=== PATIENT | female | born 2000 | race African-American/Black ===

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

== ENCOUNTER 2019-08-14 21:31 | Emergency (ER) | payer OTHER ==
[2019-08-14] MEDS ORDERED: ACETAMINOPHEN 500 MG TAB ONE (22:31)
[2019-08-15] MEDS ORDERED: PEN G BENZ LA 1.2MU/2ML SYRINGE IM ONE (00:31)
[2019-08-15] MEDS ORDERED: IBUPROFEN 200 MG TAB PO ONE (00:42)
[2019-08-15] MEDS ORDERED: IBUPROFEN 400 MG TAB ONE (00:42)
[2019-08-15 01:06] LABS: Urine Blood NEGATIVE (NEG); Urine Glucose NEGATIVE (NEG); Urine Protein NEGATIVE (NEG); Urine Specific Gravity 1.025 (1.005-1.030)
[2019-08-15 01:06] LABS: Urine Bacteria <20 /HPF (<20); Urine Culture Reflex Order REFLEXED; Urine RBC NONE SEEN /HPF (NONE SEEN)
[2019-08-15 01:59] VITALS: O2SAT 100
[2019-08-15 02:01] VITALS: BP 136/70; TEMP 101.8
--- NOTE | 2019-08-15 08:21 | RAD REPORT ---
EXAM DESCRIPTION: Jairon Single View08/14/2019 10:36 pm CLINICAL HISTORY: Fever COMPARISON: 2014 FINDINGS: The lungs appear clear of acute infiltrate. The heart is normal size IMPRESSION: No acute abnormalities displayed
--- NOTE | 2019-08-17 13:04 | EKG ---
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
--- NOTE | 2019-08-19 15:23 | ER ---
Nurse's Notes [facility] Name: Lidia Vivas Age: 18 yrs Sex: Female : 2000 Arrival Date: 08/14/2019 Time: 21:36 Bed 20 Private MD: Diagnosis: Fever, unspecified;Otitis media, unspecified, right ear Presentation: 08/13 21:49 Chief complaint: Patient states: "I've been having a fever and my tonsils are swollen lp1 and I have a headache"; patient states headache since 08/04/19; Fever that began yesterday, temp of 104 today; Last took Ibuprofen and tylenol at about 1400. Coronavirus screen: Patient denies a cough. Patient denies shortness of breath or difficulty breathing. Patient reports a measured and/or subjective temperature greater than 100.4F. Patient denies travel on a cruise ship or to a country the [facility] currently lists as an affected area. Patient denies contact with known and/or suspected case of COVID-19. Ebola Screen: No symptoms or risks identified at this time. Initial Sepsis Screen: Does the patient meet any 2 criteria? Temp <36.0*C (96.8*F)) or > 38.3*C (100.9*F). HR > 90 bpm. Does the patient have a suspected source of infection? Yes: Other: Unknown. Risk Assessment: Do you want to hurt yourself or someone else? Patient reports no desire to harm self or others. Note Patient states having a tooth fall out a couple days ago, "a really bad cavity". Onset of symptoms was August 04, 2019. 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 - Social history:: Smoking status: Patient denies any tobacco usage or history of. Screenin/28 00:00 Abuse screen: Denies threats or abuse. Nutritional screening: No deficits noted. vc Tuberculosis screening: No symptoms or risk factors identified. Fall Risk None identified. Assessment: 08/13 22:29 General: Appears uncomfortable, Behavior is anxious. Pain: Complains of pain in throat ll1 Quality of pain is described as aching, Pain began 2-3 days ago. Neuro: No deficits noted. Cardiovascular: No deficits noted. EENT: Throat is reddened has enlarged tonsils Reports difficulty swallowing nasal congestion pain when swallowing in both ears. 22:37 Reassessment: Spoke with patient's mother, Kamla; Updated on plan of care for patient; lp1 Mother states she will call patient. 23:26 Reassessment: No changes from previously documented assessment. Patient and/or family ll1 updated on plan of care and expected duration. Pain level reassessed. Patient is alert, oriented x 3, equal unlabored respirations, skin warm/dry/pink. 23:57 Reassessment: No changes from previously documented assessment. Patient and/or family ll1 updated on plan of care and expected duration. Pain level reassessed. Patient is alert, oriented x 3, equal unlabored respirations, skin warm/dry/pink. Gait steady to restroom for UA collection. 08/14 01:00 Reassessment: Patient appears in no apparent distress at this time. Patient and/or vc family updated on plan of care and expected duration. Pain level reassessed. Patient is alert, oriented x 3, equal unlabored respirations, skin warm/dry/pink. 01:33 Reassessment: Patient appears in no apparent distress at this time. Patient and/or vc family updated on plan of care and expected duration. Pain level reassessed. Patient is alert, oriented x 3, equal unlabored respirations, skin warm/dry/pink. Patient states feeling better. Patient states symptoms have improved. Vital Signs: 08/13 21:49 BP 119 / 73; Pulse 109; Resp 18; Temp 103.7(O); Pulse Ox 100% on R/A; Weight 95.71 kg lp1 (R); Height 5 ft. 7 in. (170.18 cm); Pain 9/10; 22:30 BP 146 / 83; Pulse 104; Resp 18; Pulse Ox 95% ; ll1 23:25 BP 138 / 74; Pulse 102; Resp 17; Temp 103.2; Pulse Ox 100% ; ll1 08/14 01:33 BP 136 / 70; Pulse 99; Resp 18; Temp 101.8; Pulse Ox 100% on R/A; vc 08/13 21:49 Body Mass Index 33.05 (95.71 kg, 170.18 cm) lp1 ED Course: 08/13 21:36 Patient arrived in ED. cf2 21:53 Lisandra Lowery F[facility]-C [facility]. snw 21:53 Gabriel Anderson MD is Attending Physician. snw 21:56 Triage completed. lp1 21:57 Jaja Linda, HAROON is Primary Nurse. ll1 21:57 Arm band placed on right wrist. lp1 22:36 Chest Single View XRAY In Process Unspecified. EDMS 08/14 01:25 Primary Nurse role handed off by Jaja Linda RN vc 01:25 Monserrat Lopez RN is Primary Nurse. vc 01:32 No provider procedures requiring assistance completed. Patient did not have IV access vc during this emergency room visit. Administered Medications: 08/13 22:25 Drug: Tylenol 1000 mg Route: PO; ll1 23:47 Follow up: Response: No adverse reaction; Temperature is decreased; RASS: Alert and ll1 Calm (0) 08/14 01:39 Follow up: Response: No adverse reaction; Temperature is decreased vc 00:32 Drug: Bicillin L-A 1.2 million units Route: IM; Site: Ventrogluteal RIGHT; vc 01:34 Follow up: Response: No adverse reaction vc 00:41 Drug: Motrin 600 mg Route: PO; vc 01:34 Follow up: Response: No adverse reaction vc 01:35 Not Given (Patient Refused): NS 0.9% (30 ml/kg) 30 ml/kg IV at bolus once; Sepsis vc Protocol Outcome: 00:39 Discharge ordered by . snw 01:32 Discharged to home vc 01:32 Condition: good 01:32 Discharge instructions given to patient, Instructed on discharge instructions, follow up and referral plans. Demonstrated understanding of instructions, follow-up care. 01:35 Patient left the ED. vc Signatures: Dispatcher [employer] EDAL Lisandra Lowery, [employer] PROCESS LEAD-[employer] [place] Molina RN RN lp1 Eli Monahan cf2 Monserrat Lopez RN RN vc Alexei, Jaja, RN RN ll1
--- NOTE | 2019-08-19 15:23 | EDPHYS ---
Physician Documentation [facility] [place] Name: Lidia Vivas Age: 18 yrs Sex: Female : 2000 Arrival Date: 08/14/2019 Time: 21:36 Bed 20 Private MD: ED Physician Gabriel Anderson HPI: 08/13 22:34 This 18 yrs old Black Female presents to ER via Ambulatory with complaints of Fever, snw Ear Pain, Sore Throat. 22:34 The patient reports fever, that was measured at 104 degrees Fahrenheit. Onset: The snw symptoms/episode began/occurred gradually, 10 day(s) ago, and became worse today, fever began today. Associated signs and symptoms: Pertinent positives: chills, earache, sore throat. Severity of symptoms: At their worst the symptoms were moderate in the emergency department the symptoms are unchanged. The patient has not experienced similar symptoms in the past. recent tooth extraction. 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 - Social history:: Smoking status: Patient denies any tobacco usage or history of. ROS: 22:33 Eyes: Negative for injury, pain, redness, and discharge. snw 22:33 Cardiovascular: Negative for chest pain, palpitations, and edema, Respiratory: Negative for shortness of breath, cough, wheezing, and pleuritic chest pain, Abdomen/GI: Negative for abdominal pain, nausea, vomiting, diarrhea, and constipation, Back: Negative for injury and pain, : Negative for injury, bleeding, discharge, and swelling, MS/Extremity: Negative for injury and deformity, Skin: Negative for injury, rash, and discoloration, Neuro: Negative for headache, weakness, numbness, tingling, and seizure, Psych: Negative for depression, anxiety, suicide ideation, homicidal ideation, and hallucinations. 22:33 Constitutional: Positive for body aches, fatigue, fever. 22:33 ENT: Positive for ear pain, sore throat. 22:33 Neck: Positive for swollen nodes, tenderness. Exam: 22:31 Head/Face: Normocephalic, atraumatic. Eyes: Pupils equal round and reactive to light, snw extra-ocular motions intact. Lids and lashes normal. Conjunctiva and sclera are non-icteric and not injected. Cornea within normal limits. Periorbital areas with no swelling, redness, or edema. 22:31 Chest/axilla: Normal chest wall appearance and motion. Nontender with no deformity. No lesions are appreciated. 22:31 Respiratory: Lungs have equal breath sounds bilaterally, clear to auscultation and percussion. No rales, rhonchi or wheezes noted. No increased work of breathing, no retractions or nasal flaring. Abdomen/GI: Soft, non-tender, with normal bowel sounds. No distension or tympany. No guarding or rebound. No evidence of tenderness throughout. Back: No spinal tenderness. No costovertebral tenderness. Full range of motion. Skin: Warm, dry with normal turgor. Normal color with no rashes, no lesions, and no evidence of cellulitis. MS/ Extremity: Pulses equal, no cyanosis. Neurovascular intact. Full, normal range of motion. Neuro: Awake and alert, GCS 15, oriented to person, place, time, and situation. Cranial nerves II-XII grossly intact. Motor strength 5/5 in all extremities. Sensory grossly intact. Cerebellar exam normal. Normal gait. 22:31 Constitutional: The patient appears alert, awake, febrile. 22:31 ENT: TM's: erythema, that is moderate, on the right, Examination of the other ear shows no obvious abnormality, Nose: is normal, Mouth: is normal, Posterior pharynx: erythema, that is mild, Voice: is normal. 22:31 Neck: Lymph nodes: lymphadenopathy is appreciated, anterior cervical nodes. 22:31 Cardiovascular: Rate: tachycardic, Rhythm: regular. 22:31 Psych: Behavior/mood is cooperative, inappropriate for age, Affect is animated. Vital Signs: 21:49 BP 119 / 73; Pulse 109; Resp 18; Temp 103.7(O); Pulse Ox 100% on R/A; Weight 95.71 kg lp1 (R); Height 5 ft. 7 in. (170.18 cm); Pain 9/10; 22:30 BP 146 / 83; Pulse 104; Resp 18; Pulse Ox 95% ; ll1 23:25 BP 138 / 74; Pulse 102; Resp 17; Temp 103.2; Pulse Ox 100% ; ll1 08/14 01:33 BP 136 / 70; Pulse 99; Resp 18; Temp 101.8; Pulse Ox 100% on R/A; vc 08/13 21:49 Body Mass Index 33.05 (95.71 kg, 170.18 cm) lp1 MDM: 08/13 22:12 Patient medically screened. snw 08/14 00:20 Data reviewed: vital signs, nurses notes. Data interpreted: Pulse oximetry: on room air snw is 100 %. Interpretation: normal. Counseling: I had a detailed discussion with the patient and/or guardian regarding: the historical points, exam findings, and any diagnostic results supporting the discharge/admit diagnosis, lab results, radiology results, the need for outpatient follow up, to return to the emergency department if symptoms worsen or persist or if there are any questions or concerns that arise at home. Refusal of service: The patient/guardian displays adequate decision making capability and despite a detailed discussion of alternatives, benefits, risks, and consequences refuses: pt refuses iv, ivf, will consent to Bicillin LA IM. EKG not suggestive of endocarditis, flu and strep negative, but right otitis media. . 00:40 Special discussion: Based on the history and exam findings, there is no indication for snw further emergent testing or inpatient evaluation. I discussed with the patient/guardian the need to see the primary care provider for further evaluation of the symptoms. 08/13 22:04 Order name: Basic Metabolic Panel [facility] 08/13 22:04 Order name: Blood Culture Adult (2) w 08/13 22:04 Order name: CBC with Diff w 08/13 22:04 Order name: Urine Microscopic Only snw 08/13 22:04 Order name: Flu; Complete Time: 22:50 snw 08/13 22:04 Order name: Strep; Complete Time: 22:50 snw 08/13 22:04 Order name: Chest Single View XRAY [facility] 08/13 22:04 Order name: Cardiac monitoring; Complete Time: 23:46 snw 08/13 22:04 Order name: EKG - Nurse/Tech; Complete Time: 23:46 snw 08/13 22:04 Order name: O2 Per Protocol; Complete Time: 22:28 snw 08/13 22:04 Order name: O2 Sat Monitoring; Complete Time: 22:28 snw 08/13 23:07 Order name: Throat Culture [facility] 08/14 00:08 Order name: Urine Dipstick--Ancillary (enter results) [facility] 08/14 00:08 Order name: Urine --Ancillary (enter results) [facility] 08/14 01:07 Order name: Urine Culture [facility] 08/13 22:04 Order name: Urine Dipstick-Ancillary (obtain specimen); Complete Time: 23:47 snw EC/27 22:50 Rate is 107 beats/min. Rhythm is regular. QRS [place] is Normal. [place] interval is normal. snw QRS interval is normal. QT interval is normal. No Q waves. T waves are Normal. Clinical impression: Sinus tachycardia. Administered Medications: 22:25 Drug: Tylenol 1000 mg Route: PO; ll1 23:47 Follow up: Response: No adverse reaction; Temperature is decreased; RASS: Alert and ll1 Calm (0) 08/14 01:39 Follow up: Response: No adverse reaction; Temperature is decreased vc 00:32 Drug: Bicillin L-A 1.2 million units Route: IM; Site: Ventrogluteal RIGHT; vc 01:34 Follow up: Response: No adverse reaction vc 00:41 Drug: Motrin 600 mg Route: PO; vc 01:34 Follow up: Response: No adverse reaction vc 01:35 Not Given (Patient Refused): NS 0.9% (30 ml/kg) 30 ml/kg IV at bolus once; Sepsis vc Protocol Disposition: 06:41 Co-signature as Attending Physician, Gabriel Anderson MD. pa2 Disposition: 08/15/19 00:39 Discharged to Home. Impression: Fever, unspecified, Otitis media, unspecified, right ear. - Condition is Stable. - Discharge Instructions: Otitis Media, Adult, Fever, Adult, Rehydration, Adult. - Medication Reconciliation Form, Thank You Letter, Antibiotic Education, Prescription Opioid Use form. - Follow up: Emergency Department; When: As needed; Reason: Worsening of condition. Follow up: Private Physician; When: 1 - 2 days; Reason: Recheck today's complaints, Continuance of care, Re-evaluation by your physician. Signatures: Dispatcher [employer] [facility] Lisandra Lowery, [employer]ANT-C [employer] [place] Molina, RN RN lp1 Gabriel Anderson MD MD ma2 Monserrat Lopez RN RN vc Lewis, Lynsay, RN RN ll1 Corrections: (The following items were deleted from the chart) 08/13 22:44 22:04 IV Saline Lock - Large Bore ordered. [place] [id number] :44 22:04 Labs collected and sent ordered. [place] [id number] 23:46 22:04 Accucheck ordered. [place] [id number] 08/14 01:35 00:39 08/15/2019 00:39 Discharged to Home. Impression: Fever, unspecified; Otitis vc media, unspecified, right ear. Condition is Stable. Discharge Instructions: Otitis Media, Adult, Rehydration, Adult, Fever, Adult. Forms are Medication Reconciliation Form, Thank You Letter, Antibiotic Education, Prescription Opioid Use. Follow up: Emergency Department; When: As needed; Reason: Worsening of condition. Follow up: Private Physician; When: 1 - 2 days; Reason: Recheck today's complaints, Continuance of care, Re-evaluation by your physician. snw
== END 2019-08-15 01:35 | disposition home or self-care (01) ==
LOC: ER 21:31
DX: H66.91 Otitis media, unspecified, right ear (principal)
CPT/HCPCS: 93005; 87070; 87088; 87086; 81025; 87081; 81003; 81015; 87804 ×2; 71045; 96372; 99283; J0561

== ENCOUNTER 2019-09-19 03:37 | Emergency (ER) | payer OTHER ==
--- NOTE | 2019-09-19 04:12 | ER ---
Nurse's Notes [facility] Name: Lidia Vivas Age: 18 yrs Sex: Female : 2000 Arrival Date: 09/19/2019 Time: 03:40 Bed 5 Private MD: Diagnosis: Candidiasis;Urinary tract infection, site not specified Presentation: 09/18 03:52 Chief complaint: Patient states: Reports she had a weird discharge that started a few ea days ago that looked clumpy. Pt reports at 0315 this AM she took monistat and it started burning. Coronavirus screen: Proceed with normal triage. Ebola Screen: No symptoms or risks identified at this time. Initial Sepsis Screen: Does the patient meet any 2 criteria? No. Patient's initial sepsis screen is negative. Does the patient have a suspected source of infection? No. Patient's initial sepsis screen is negative. Risk Assessment: Do you want to hurt yourself or someone else? Patient reports no desire to harm self or others. Onset of symptoms was September 19, 2019. 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 - Social history:: Smoking status: Patient denies any tobacco usage or history of. - Family history:: not pertinent. Screenin:52 Abuse screen: Denies threats or abuse. Nutritional screening: No deficits noted. ea Tuberculosis screening: No symptoms or risk factors identified. Fall Risk None identified. Assessment: 04:14 General: Appears in no apparent distress. comfortable, Behavior is calm, cooperative. mg2 Pain: Complains of pain in vaginal area. Neuro: Level of Consciousness is awake, alert, obeys commands, Oriented to person, place, time, Appropriate for age. Cardiovascular: Capillary refill < 3 seconds Patient's skin is warm and dry. Respiratory: Airway is patent Respiratory effort is even, unlabored, Respiratory pattern is regular, symmetrical. GI: No signs and/or symptoms were reported involving the gastrointestinal system. : Reports discharge, from vagina that is white, pain vaginal area. EENT: No signs and/or symptoms were reported regarding the EENT system. Derm: Skin is intact, is healthy with good turgor, Skin is pink, warm \T\ dry. normal. Musculoskeletal: Circulation, motion, and sensation intact. Capillary refill < 3 seconds. Vital Signs: 03:52 BP 133 / 82; Pulse 83; Resp 18; Temp 98; Pulse Ox 100% on R/A; Weight 95.71 kg; Height ea 5 ft. 7 in. (170.18 cm); 03:52 Body Mass Index 33.05 (95.71 kg, 170.18 cm) ea ED Course: 03:40 Patient arrived in ED. bp1 03:49 Everardo Rodriguez MD is Attending Physician. shaniqua 03:49 Anders Salazar, RN is Primary Nurse. mg2 03:55 Triage completed. ea 03:55 Arm band placed on right wrist. Patient placed in an exam room, on a stretcher, on ea pulse oximetry. 03:55 Patient has correct armband on for positive identification. Bed in low position. Call ea light in reach. Side rails up X2. 04:12 Ashu Rivera MD is Referral Physician. shaniqua 04:15 No provider procedures requiring assistance completed. Patient did not have IV access mg2 during this emergency room visit. Administered Medications: 04:09 Drug: DiFLUcan 200 mg Route: PO; ea 04:14 Follow up: Response: No adverse reaction; Medication administered at discharge. mg2 04:13 Drug: Cipro 500 mg Route: PO; mg2 04:14 Follow up: Response: No adverse reaction; Medication administered at discharge. mg2 Outcome: 04:12 Discharge ordered by . shaniqua 04:20 Discharged to home ambulatory. mg2 04:20 Condition: stable 04:20 Discharge instructions given to patient, Instructed on discharge instructions, follow up and referral plans. medication usage, Demonstrated understanding of instructions, follow-up care, medications, Prescriptions given X 2. 04:21 Patient left the ED. mg2 Signatures: Everardo Rodriguez MD MD cha Antunez, Elena, RN RN ea [place], Michele, RN RN mg2 Lucila Gale bp1 Corrections: (The following items were deleted from the chart) 04:20 04:14 : Reports pain vaginal area mg2 mg2
--- NOTE | 2019-09-19 04:12 | EDPHYS ---
Physician Documentation [facility] Name: Lidia Vivas Age: 18 yrs Sex: Female : 2000 Arrival Date: 09/19/2019 Time: 03:40 Bed 5 Private MD: ED Physician Everardo Rodriguez HPI: 09/18 04:00 This 18 yrs old Black Female presents to ER via Ambulatory with complaints of Vaginal shaniqua Pain. 04:00 The patient presents with vaginal discharge, that is a small amount of a moderate shaniqua amount of curd-like, white discharge. Onset: The symptoms/episode began/occurred 3 day(s) ago. Modifying factors: The symptoms are alleviated by nothing, the symptoms are aggravated by nothing. Associated signs and symptoms: The patient has no apparent associated signs or symptoms. Severity of symptoms: At their worst the symptoms were mild, in the emergency department the symptoms are unchanged. The patient is not sexually active. The patient has not experienced similar symptoms in the past. 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 - Social history:: Smoking status: Patient denies any tobacco usage or history of. - Family history:: not pertinent. ROS: 04:00 Constitutional: Negative for fever, chills, and weight loss, Eyes: Negative for injury, shaniqua pain, redness, and discharge, ENT: Negative for injury, pain, and discharge, Neck: Negative for injury, pain, and swelling, Cardiovascular: Negative for chest pain, palpitations, and edema, Respiratory: Negative for shortness of breath, cough, wheezing, and pleuritic chest pain, Abdomen/GI: Negative for abdominal pain, nausea, vomiting, diarrhea, and constipation, Back: Negative for injury and pain, MS/Extremity: Negative for injury and deformity, Skin: Negative for injury, rash, and discoloration, Neuro: Negative for headache, weakness, numbness, tingling, and seizure, Psych: Negative for depression, anxiety, suicide ideation, homicidal ideation, and hallucinations, Allergy/Immunology: Negative for hives, rash, and allergies, Endocrine: Negative for neck swelling, polydipsia, polyuria, polyphagia, and marked weight changes, Hematologic/Lymphatic: Negative for swollen nodes, abnormal bleeding, and unusual bruising. 04:00 : Positive for vaginal discharge, vaginal itching. Exam: 04:00 Constitutional: This is a well developed, well nourished patient who is awake, alert, shaniqua and in no acute distress. Head/Face: Normocephalic, atraumatic. Eyes: Pupils equal round and reactive to light, extra-ocular motions intact. Lids and lashes normal. Conjunctiva and sclera are non-icteric and not injected. Cornea within normal limits. Periorbital areas with no swelling, redness, or edema. ENT: Nares patent. No nasal discharge, no septal abnormalities noted. Tympanic membranes are normal and external auditory canals are clear. Oropharynx with no redness, swelling, or masses, exudates, or evidence of obstruction, uvula midline. Mucous membranes moist. Neck: Trachea midline, no thyromegaly or masses palpated, and no cervical lymphadenopathy. Supple, full range of motion without nuchal rigidity, or vertebral point tenderness. No Meningismus. Chest/axilla: Normal chest wall appearance and motion. Nontender with no deformity. No lesions are appreciated. Cardiovascular: Regular rate and rhythm with a normal S1 and S2. No gallops, murmurs, or rubs. Normal PMI, no JVD. No pulse deficits. Respiratory: Lungs have equal breath sounds bilaterally, clear to auscultation and percussion. No rales, rhonchi or wheezes noted. No increased work of breathing, no retractions or nasal flaring. Abdomen/GI: Soft, non-tender, with normal bowel sounds. No distension or tympany. No guarding or rebound. No evidence of tenderness throughout. Back: No spinal tenderness. No costovertebral tenderness. Full range of motion. Skin: Warm, dry with normal turgor. Normal color with no rashes, no lesions, and no evidence of cellulitis. MS/ Extremity: Pulses equal, no cyanosis. Neurovascular intact. Full, normal range of motion. Neuro: Awake and alert, GCS 15, oriented to person, place, time, and situation. Cranial nerves II-XII grossly intact. Motor strength 5/5 in all extremities. Sensory grossly intact. Cerebellar exam normal. Normal gait. Psych: Awake, alert, with orientation to person, place and time. Behavior, mood, and affect are within normal limits. 04:00 : Pelvic Exam: the exam is deferred, na. Vital Signs: 03:52 BP 133 / 82; Pulse 83; Resp 18; Temp 98; Pulse Ox 100% on R/A; Weight 95.71 kg; Height ea 5 ft. 7 in. (170.18 cm); 03:52 Body Mass Index 33.05 (95.71 kg, 170.18 cm) ea MDM: 03:49 Patient medically screened. [facility] 04:03 Data reviewed: vital signs, nurses notes, lab test result(s), urinalysis. [facility] 04:10 Differential diagnosis: nonspecific abdominal pain, urinary tract infection, vaginosis. [facility] Data interpreted: aboriginal liaison officer: not applicable for this patient encounter. rate is 83 beats/min, rhythm is regular, Pulse oximetry: on is 100 %. Test interpretation: by ED physician or midlevel provider:. Counseling: I had a detailed discussion with the patient and/or guardian regarding: the historical points, exam findings, and any diagnostic results supporting the discharge/admit diagnosis, the need for outpatient follow up, for definitive care, an OB/Gyne specialist. ED course: no fear of retention of a tampoon. 09/18 04:09 Order name: Urine Dipstick--Ancillary (enter results) 09/18 04:00 Order name: Urine Dipstick-Ancillary (obtain specimen); Complete Time: 04:04 [facility] 09/18 04:00 Order name: Urine Test (obtain specimen); Complete Time: 04:04 [facility] Administered Medications: 04:09 Drug: DiFLUcan 200 mg Route: PO; ea 04:14 Follow up: Response: No adverse reaction; Medication administered at discharge. mg2 04:13 Drug: Cipro 500 mg Route: PO; mg2 04:14 Follow up: Response: No adverse reaction; Medication administered at discharge. mg2 Disposition: 09/19/19 04:12 Discharged to Home. Impression: Candidiasis, Urinary tract infection, site not specified. - Condition is Stable. - Discharge Instructions: Dysuria, Urinary Tract Infection, Adult, Vaginal Yeast Infection, Adult, Urinary Tract Infection, Adult, [id number], Antibiotic Medicine, Adult, Antibiotic Medicine, [id number]. - Prescriptions for Cipro 250 mg Oral Tablet - take 1 tablet by ORAL route every 12 hours for 7 days; 14 tablet. Diflucan 150 mg Oral Tablet - take 1 tablet by ORAL route one time for 1 day every ; 2 tablet. - Medication Reconciliation Form, Thank You Letter, Antibiotic Education, Prescription Opioid Use form. - Follow up: Private Physician; When: 2 - 3 days; Reason: Recheck today's complaints, Continuance of care, Re-evaluation by your physician. Follow up: Ashu Rivera; When: 2 - 3 days; Reason: Recheck today's complaints, Re-evaluation by your physician. - Problem is new. - Symptoms have improved. Signatures: Dispatcher [employer] EDEverardo Kan MD MD cha Antunez, Elena, Anders Ruelas RN, ea, RN RN mg2 Corrections: (The following items were deleted from the chart) 04:21 04:12 09/19/2019 04:12 Discharged to Home. Impression: Candidiasis; Urinary tract mg2 infection, site not specified. Condition is Stable. Forms are Medication Reconciliation Form, Thank You Letter, Antibiotic Education, Prescription Opioid Use. Follow up: Private Physician; When: 2 - 3 days; Reason: Recheck today's complaints, Continuance of care, Re-evaluation by your physician. Follow up: Ashu Rivera; When: 2 - 3 days; Reason: Recheck today's complaints, Re-evaluation by your physician. Problem is new. Symptoms have improved. shaniqua
[2019-09-19] MEDS ORDERED: FLUCONAZOLE 100 MG TAB ONE (04:14)
[2019-09-19] MEDS ORDERED: CIPROFLOXACIN HCL 500 MG TAB ONE (04:20)
[2019-09-19 04:26] VITALS: BP 133/82; TEMP 98; O2SAT 100
[2019-09-19 06:05] LABS: Urine Blood TRACE (NEG); Urine Glucose NEGATIVE (NEG); Urine Protein NEGATIVE (NEG); Urine Specific Gravity 1.025 (1.005-1.030); Urine pH 5.5 (5.0-7.0)
== END 2019-09-19 04:21 | disposition home or self-care (01) ==
LOC: ER 03:37
DX: N39.0 Urinary tract infection, site not specified (principal); B37.9 Candidiasis, unspecified
CPT/HCPCS: 81003; 99283

== ENCOUNTER 2020-08-26 14:58 | Emergency (ER) | payer OTHER ==
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
[2020-08-26 15:51] VITALS: BP 144/80; TEMP 97.9; O2SAT 100
== END 2020-08-26 15:47 | disposition home or self-care (01) ==
LOC: ER 14:58
DX: S00.90XA Unspecified superficial injury of unspecified part of head, initial encounter (principal); V49.40XA Driver injured in collision with unspecified motor vehicles in traffic accident, initial encounter
CPT/HCPCS: 99283

== ENCOUNTER 2021-10-21 17:38 | Emergency (ER) | payer OTHER, SELFPAY ==
[2021-10-21 18:17] LABS: Absolute Lymphocytes (CBC) 2.9 K/uL (0.7-4.9); Hematocrit 39.5 % (36.0-45.0); Lymphocytes % 24.9 % (15.3-44.8); MCV 79.1 fL (80-100); MPV 7.6 fL (7.6-11.3); RBC Red Blood Cell Count 4.99 M/uL (3.86-4.86)
[2021-10-21 18:21] LABS: Urine Blood 3+ (Negative); Urine Glucose Negative (Negative); Urine Protein Negative (Negative)
[2021-10-21] MEDS ORDERED: KETOROLAC 30 MG/ML INJ ONE (18:29)
[2021-10-21] MEDS ORDERED: ONDANSETRON 4 MG/2 ML VIAL ONE (18:30)
[2021-10-21] MEDS ORDERED: NA CHLORIDE 0.9% 1,000 ML ONE (18:30)
[2021-10-21 18:42] LABS: Albumin 3.8 g/dL (3.4-5.0); Bilirubin Total 0.7 mg/dL (0.2-1.0); Protein, Total 8.6 g/dL (6.4-8.2)
--- NOTE | 2021-10-21 19:35 | RAD REPORT ---
EXAM DESCRIPTION: CT - Abdomen Pelvis W Contrast - 10/21/2021 7:19 pm CLINICAL HISTORY: abd pain COMPARISON: No comparisons TECHNIQUE: Biphasic, helical CT imaging of the abdomen and pelvis was performed following 100 ml non -ionic IV contrast. No oral contrast administered. All CT scans are performed using dose optimization technique as appropriate and may include automated exposure control or mA/KV adjustment according to patient size. FINDINGS: No suspicious findings in the lung bases. The liver, spleen, and pancreas show no suspicious findings. Gallbladder and biliary tree are also wi thout suspicious finding. Symmetric renal function is seen with no hydronephrosis or suspicious renal mass. No pyelonephritis o r acute parenchymal process. No bladder abnormalities. No adrenal abnormalities. Uterus and ovaries s how no suspicious findings. There is a physiologic quantity of free fluid in the cul de sac. No dilated bowel loops or bowel wall thickening. Moderate stool volume is seen filling but not dilati ng most of the colon. No direct or indirect evidence for appendicitis. No free air or pneumatosis. N o hernia, mass or bulky lymphadenopathy. No suspicious bony findings. IMPRESSION: Contrast enhanced CT abdomen and pelvis showing no acute or emergent finding.
--- NOTE | 2021-10-21 20:11 | EDPHYS ---
Physician Documentation [facility] Name: Lidia Vivas Age: 20 yrs Sex: Female : 2000 Arrival Date: 10/21/2021 Time: 17:39 Bed 24 Private MD: ED Physician Joseph Gonzalez HPI: 10/22 00:30 This 20 yrs old Black Female presents to ER via Ambulatory with complaints of Abdominal kb Cramping, Vaginal Bleeding. 00:30 The patient presents with abdominal pain in the lower abdomen. Onset: The kb symptoms/episode began/occurred this morning. The symptoms do not radiate. Associated signs and symptoms: Pertinent positives: vaginal bleeding. The symptoms are described as constant. Modifying factors: The symptoms are alleviated by nothing, the symptoms are aggravated by nothing. Severity of pain: At its worst the pain was moderate in the emergency department the pain is unchanged. The patient has experienced similar episodes in the past, but today's symptoms are worse, more painful. The patient has not recently seen a physician. Patient reports lower abdominal cramping that started this morning is gotten worse throughout the day. States she normally has menstrual cramps but this feels different and is a lot worse.. 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 - Social history:: Smoking status: Patient denies any tobacco usage or history of. Patient/guardian denies using alcohol. ROS: 10/22 00:28 Constitutional: Negative for fever, chills, and weight loss. kb Abdomen/GI: Positive for abdominal cramps, Negative for nausea, vomiting, and diarrhea. : Positive for vaginal bleeding. All other systems are negative. Exam: 00:29 Constitutional: This is a well developed, well nourished patient who is awake, alert, kb and in no acute distress. Head/Face: Normocephalic, atraumatic. ENT: Moist Mucous membranes Cardiovascular: Regular rate and rhythm with a normal S1 and S2. No gallops, murmurs, or rubs. No pulse deficits. Respiratory: Respirations even and unlabored. No increased work of breathing. Talking in full sentences Skin: Warm, dry with normal turgor. Normal color. MS/ Extremity: Pulses equal, no cyanosis. Neurovascular intact. Full, normal range of motion. Neuro: Awake and alert, GCS 15, oriented to person, place, time, and situation. Moves all extremities. Normal gait. Psych: Awake, alert, with orientation to person, place and time. Behavior, mood, and affect are within normal limits. 00:29 Abdomen/GI: Inspection: abdomen appears normal, Bowel sounds: normal, Palpation: soft, in all quadrants, mild abdominal tenderness, in the suprapubic area and left lower quadrant, moderate abdominal tenderness, in the right lower quadrant. Vital Signs: 10/21 17:51 BP 130 / 73; Pulse 73; Resp 18; Temp 98.3(TE); Pulse Ox 100% on R/A; Weight 97.52 kg; ld1 Height 5 ft. 7 in. (170.18 cm); Pain 9/10; 17:51 Body Mass Index 33.67 (97.52 kg, 170.18 cm) ld1 MDM: 17:53 Patient medically screened. kb 10/22 00:29 Data reviewed: vital signs, nurses notes. Data interpreted: Pulse oximetry: on room air kb is 100 %. Interpretation: normal. Counseling: I had a detailed discussion with the patient and/or guardian regarding: the historical points, exam findings, and any diagnostic results supporting the discharge/admit diagnosis, lab results, radiology results, the need for outpatient follow up, a family practitioner, to return to the emergency department if symptoms worsen or persist or if there are any questions or concerns that arise at home. 10/21 17:54 Order name: CBC with Diff; Complete Time: 18:25 kb 10/21 17:54 Order name: CMP; Complete Time: 18:48 kb 10/21 17:54 Order name: Lipase; Complete Time: 18:48 kb 10/21 17:54 Order name: CT Abd/Pelvis - IV Contrast Only; Complete Time: 19:40 kb 10/21 18:21 Order name: Urine Dipstick-Ancillary; Complete Time: 18:25 EDMS 10/21 18:43 Order name: Urine --Ancillary (enter results); Complete Time: 18:59 kj1 10/21 17:41 Order name: Urine Dipstick-Ancillary (obtain specimen); Complete Time: 18:15 kb 10/21 17:41 Order name: Urine Test (obtain specimen); Complete Time: 18:15 kb 10/21 17:54 Order name: IV Saline Lock; Complete Time: 18:15 kb 10/21 17:54 Order name: Labs collected and sent; Complete Time: 18:15 kb Administered Medications: 10/21 18:25 Drug: NS 0.9% 1000 ml Route: IV; Rate: 1 bolus; Site: right antecubital; hb 18:25 Drug: Zofran (Ondansetron) 4 mg Route: IVP; Site: right antecubital; hb 18:25 Drug: Ketorolac 15 mg Route: IVP; Site: right antecubital; hb Disposition: 10/22 09:10 Co-signature as Attending Physician, Joseph Gonzalez MD I agree with the assessment and kdr plan of care. Disposition Summary: 10/21/21 20:10 Discharge Ordered Location: Home(10/21/21 20:10) kb Condition: Stable(10/21/21 20:10) kb Diagnosis - Dysmenorrhea, unspecified kb Followup: kb - With: Emergency Department - When: As needed - Reason: Worsening of condition Followup: kb - With: Private Physician - When: 2 - 3 days - Reason: Recheck today's complaints, Continuance of care, Re-evaluation by your physician Discharge Instructions: - Discharge Summary Sheet kb - Dysmenorrhea, [id number] kb Forms: - Medication Reconciliation Form kb - Thank You Letter kb - Antibiotic Education kb - Prescription Opioid Use kb Signatures: Dispatcher [employer] EDRadha Mistry, CAMERA CONTROL OPERATOR-C MARGAUX-Joseph Baxter MD MD [facility] Meche Gudino RN RN Giulia Chavez, HAROON RN ld1 Corrections: (The following items were deleted from the chart) 10/21 20:09 20:09 Home kb kb 20:09 20:09 Stable kb kb 20:09 20:09 Lower abdominal pain, unspecified kb kb
--- NOTE | 2021-10-21 20:11 | ER ---
Nurse's Notes [facility] Name: Lidia Vivas Age: 20 yrs Sex: Female : 2000 Arrival Date: 10/21/2021 Time: 17:39 Bed 24 Private MD: Diagnosis: Dysmenorrhea, unspecified Presentation: 10/21 17:51 Chief complaint: Patient states: ABD cramping since this morning - nausea. Reports ld1 menstrual cycle began this morning. Coronavirus screen: At this time, the client does not indicate any symptoms associated with coronavirus-19. Ebola Screen: No symptoms or risks identified at this time. Initial Sepsis Screen: Does the patient meet any 2 criteria? No. Patient's initial sepsis screen is negative. Does the patient have a suspected source of infection? No. Patient's initial sepsis screen is negative. Risk Assessment: Do you want to hurt yourself or someone else? Patient reports no desire to harm self or others. Onset of symptoms was October 21, 2021 at 17:53. 17:51 Method Of Arrival: Ambulatory ld1 17:51 Acuity: MICKY 3 ld1 Triage Assessment: 17:53 General: Appears in no apparent distress. uncomfortable, Behavior is cooperative, ld1 anxious. Pain: Complains of pain in right lower quadrant and left lower quadrant Pain does not radiate. Pain currently is 9 out of 10 on a pain scale. EENT: No signs and/or symptoms were reported regarding the EENT system. Neuro: Level of Consciousness is awake, alert, obeys commands, Oriented to person, place, time, situation. Cardiovascular: Capillary refill < 3 seconds Patient's skin is warm and dry. Respiratory: Airway is patent Respiratory effort is even, unlabored. GI: Abdomen is round non-distended, Reports cramping. : Urine is clear, Reports vaginal bleeding that is. Derm: No signs and/or symptoms reported regarding the dermatologic system. Musculoskeletal: No signs and/or symptoms reported regarding the musculoskeletal system. 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 - Social history:: Smoking status: Patient denies any tobacco usage or history of. Patient/guardian denies using alcohol. Screenin:34 Abuse screen: Denies threats or abuse. Denies injuries from another. Nutritional hb screening: No deficits noted. Tuberculosis screening: No symptoms or risk factors identified. Fall Risk None identified. Assessment: 18:25 General: Appears in no apparent distress. Behavior is calm, cooperative. Pain: Pain hb currently is 8 out of 10 on a pain scale. Neuro: Level of Consciousness is awake, alert, obeys commands, Oriented to person, place, time, situation. Cardiovascular: Patient's skin is warm and dry. Respiratory: Respiratory effort is even, unlabored, Respiratory pattern is regular, symmetrical. GI: Reports lower abdominal pain. : Reports vaginal bleeding that is. EENT: No signs and/or symptoms were reported regarding the EENT system. Derm: Skin is pink, warm \T\ dry. Musculoskeletal: No signs and/or symptoms reported regarding the musculoskeletal system. 20:34 Reassessment: Patient appears in no apparent distress at this time. No changes from hb previously documented assessment. Patient and/or family updated on plan of care and expected duration. Pain level reassessed. Patient is alert, oriented x 3, equal unlabored respirations, skin warm/dry/pink. Vital Signs: 17:51 BP 130 / 73; Pulse 73; Resp 18; Temp 98.3(TE); Pulse Ox 100% on R/A; Weight 97.52 kg; ld1 Height 5 ft. 7 in. (170.18 cm); Pain 9/10; 17:51 Body Mass Index 33.67 (97.52 kg, 170.18 cm) ld1 ED Course: 17:39 Patient arrived in ED. rg4 17:41 Rad[facility]endez [facility]C [facility] kb 17:41 Joseph Gonzalez MD is Attending Physician. kb 17:53 Triage completed. ld1 17:53 Arm band placed on right wrist. ld1 17:59 Meche Gudino, RN is Primary Nurse. hb 18:14 Inserted saline lock: 22 gauge in right antecubital area, using aseptic technique. zm Blood collected. 18:15 CBC with Diff Sent. zm 18:15 CMP Sent. zm 18:15 Lipase Sent. zm 19:21 CT Abd/Pelvis - IV Contrast Only In Process Unspecified. EDMS 19:36 Bed in low position. Call light in reach. Side rails up X2. Assisted to bathroom. 3 20:34 No provider procedures requiring assistance completed. IV discontinued, intact, hb bleeding controlled, No redness/swelling at site. Administered Medications: 18:25 Drug: NS 0.9% 1000 ml Route: IV; Rate: 1 bolus; Site: right antecubital; hb 18:25 Drug: Zofran (Ondansetron) 4 mg Route: IVP; Site: right antecubital; hb 18:25 Drug: Ketorolac 15 mg Route: IVP; Site: right antecubital; hb Medication: 20:34 VIS not applicable for this client. hb Outcome: 20:09 Discharge ordered by MD. kb 20:10 Discharge ordered by MD. kb 20:34 Discharged to home ambulatory. hb 20:34 Condition: stable 20:34 Discharge instructions given to patient, Instructed on discharge instructions, follow up and referral plans. medication usage, Demonstrated understanding of instructions, follow-up care, medications. 20:35 Patient left the ED. hb Signatures: Dispatcher [employer] EDLA Radha Mendez, BIOSTATISTICIAN-C BIOSTATISTICIAN-CkMeche Arceo, RN RN Fariba Mcrae 4 Giulia Chavez RN RN 1 Kay Driscoll 3 Sandi Dorman
[2021-10-21 23:36] VITALS: BP 130/73; TEMP 98.3; O2SAT 100
== END 2021-10-21 20:35 | disposition home or self-care (01) ==
LOC: ER 17:38
DX: N94.6 Dysmenorrhea, unspecified (principal)
CPT/HCPCS: 36415; 74177; 80053; 81003; 81025; 83690; 85025; 96374; 96375; 99284; J2405; J7030; Q9967

== ENCOUNTER 2022-12-28 01:54 | Emergency (ER) | payer SELFPAY ==
--- NOTE | 2022-12-28 02:53 | EDPHYS ---
Physician Documentation [facility] Name: Lidia Vivas Age: 22 yrs Sex: Female : 2000 Arrival Date: 12/28/2022 Time: 01:54 Bed 14 Private MD: ED Physician Everardo Rodriguez HPI: 12/28 02:11 This 22 yrs old Black Female presents to ER via Ambulatory with complaints of THROAT kb PAIN. 02:11 The patient presents with sore throat. The patient describes throat pain as constant. kb Onset: The symptoms/episode began/occurred 1 hour(s) ago. Severity of symptoms: At their worst the symptoms were mild, in the emergency department the symptoms are unchanged. Modifying factors: The symptoms are alleviated by nothing, the symptoms are aggravated by swallowing, Patient's oral intake status: good. Associated signs and symptoms: Pertinent positives: Sore throat Pertinent negatives fever. The patient has experienced similar episodes in the past, several times. The patient has not recently seen a physician. 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 - Social history:: Smoking status: Reported history of juuling and/or vaping. Patient uses street drugs, marijuana. ROS: 02:10 Constitutional: Negative for fever, chills, and weight loss, kb 02:10 ENT: Positive for sore throat, 02:10 All other systems are negative, Exam: 02:10 Constitutional: This is a well developed, well nourished patient who is awake, alert, kb and in no acute distress. Head/Face: Normocephalic, atraumatic. Cardiovascular: Regular rate Respiratory: Respirations even and unlabored. No increased work of breathing. Talking in full sentences Skin: Warm, dry with normal turgor. Normal color. MS/ Extremity: Pulses equal, no cyanosis. Neurovascular intact. Full, normal range of motion. Neuro: Awake and alert, GCS 15, oriented to person, place, time, and situation. Moves all extremities. Normal gait. 02:10 ENT: Posterior pharynx: Tonsils: bilaterally enlarged, with erythema, Vital Signs: 02:04 BP 132 / 73; Pulse 81; Resp 16 S; Temp 99.4(O); Pulse Ox 99% on R/A; Weight 96.62 kg cm10 (R); Height 5 ft. 7 in. (R); Pain 4/10; 02:04 Body Mass Index 33.36 (96.62 kg, 170.18 cm) cm10 02:04 Pain Scale: Adult cm10 MDM: 02:00 Patient medically screened. kb 02:11 Data reviewed: vital signs, nurses notes. kb 02:52 Differential diagnosis: peritonsillar abscess pharyngitis, tonsillitis. Test considered kb but Not performed: CT: CT considered, but no trismus, able to visualize tonsils, no abscess seen. Counseling: I had a detailed discussion with the patient and/or guardian regarding the historical points, exam findings, and any diagnostic results supporting the discharge/admit diagnosis, lab results, the need for outpatient follow up, a family practitioner, to return to the emergency department if symptoms worsen or persist or if there are any questions or concerns that arise at home. 12/28 02:02 Order name: Strep kb 12/28 02:54 Order name: Throat Culture EDMS Administered Medications: No medications were administered Disposition Summary: 12/28/22 02:53 Discharge Ordered Notes: Location: Home kb Condition: Stable kb Diagnosis - Pain in throat kb Followup: kb - With: Emergency Department - When: As needed - Reason: Worsening of condition Followup: kb - With: Private Physician - When: 2 - 3 days - Reason: Recheck today's complaints, Continuance of care, Re-evaluation by your physician Discharge Instructions: - Discharge Summary Sheet kb - Sore Throat, [id number] kb Forms: - Medication Reconciliation Form kb - Thank You Letter kb - Antibiotic Education kb - Prescription Opioid Use kb - Patient Portal Instructions kb - Leadership Thank You Letter kb Signatures: Dispatcher [employer] Radha Cordero, MARGAUX-Nano DAMICO-Luanne Herring, RN RN cm10
--- NOTE | 2022-12-28 02:53 | ER ---
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 No fevers. Coronavirus screen: Vaccine status: Patient reports being unvaccinated. Client denies travel out of the [place] in the last 14 days. Ebola Screen: Patient denies travel to an Ebola-affected area in the 21 days before illness onset. No symptoms or risks identified at this time. Initial Sepsis Screen: Does the patient meet any 2 criteria? No. Patient's initial sepsis screen is negative. Does the patient have a suspected source of infection? No. Patient's initial sepsis screen is negative. Risk Assessment: Do you want to hurt yourself or someone else? Patient reports no desire to harm self or others. Onset of symptoms was December 28, 2022. 02:04 Method Of Arrival: Ambulatory cm10 02:04 Acuity: MICKY 4 cm10 Triage Assessment: 02:06 General: Appears in no apparent distress. comfortable, Behavior is calm, cooperative. cm10 Pain: Complains of pain in throat. EENT: No deficits noted. Reports pain in throat when swallowing. Neuro: No deficits noted. Level of Consciousness is awake, alert, obeys commands, Oriented to person, place, time, situation. Cardiovascular: No deficits noted. Patient's skin is warm and dry. Respiratory: No deficits noted. Airway is patent Respiratory effort is even, unlabored, Respiratory pattern is regular, symmetrical. GI: No deficits noted. No signs and/or symptoms were reported involving the gastrointestinal system. : No deficits noted. No signs and/or symptoms were reported regarding the genitourinary system. Derm: No deficits noted. No signs and/or symptoms reported regarding the dermatologic system. Skin is intact, Skin is pink, warm \T\ dry. Musculoskeletal: No deficits noted. Range of motion: intact in all extremities. 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 - Social history:: Smoking status: Reported history of juuling and/or vaping. Patient uses street drugs, marijuana. Screenin:[address] [facility] ED Fall Risk Assessment (Adult) History of falling in the last 3 months, cm10 including since admission No falls in past 3 months (0 pts) Confusion or Disorientation Yes (5 pts) Intoxicated or Sedated No (0 pts) Impaired Gait No (0 pts) Mobility Assist Device Used No (0 pt) Altered Elimination No (0 pt) Score/Fall Risk Level 0 - 2 = Low Risk Oriented to surroundings, Maintained a safe environment, Hourly rounding (assess needs \T\ fall precautionary measures) done. Abuse screen: Denies threats or abuse. Denies injuries from another. Nutritional screening: No deficits noted. Tuberculosis screening: No symptoms or risk factors identified. Assessment: 02:15 General: see triage assessment. jw7 03:22 Reassessment: Patient appears in no apparent distress at this time. Patient and/or jw7 family updated on plan of care and expected duration. Pain level reassessed. Patient is alert, oriented x 3, equal unlabored respirations, skin warm/dry/pink. Vital Signs: 02:04 BP 132 / 73; Pulse 81; Resp 16 S; Temp 99.4(O); Pulse Ox 99% on R/A; Weight 96.62 kg cm10 (R); Height 5 ft. 7 in. (R); Pain 4/10; 02:04 Body Mass Index 33.36 (96.62 kg, 170.18 cm) cm10 02:04 Pain Scale: Adult cm10 ED Course: 01:59 Patient arrived in ED. gm2 02:00 Radha Mendez FNP-C is PHCP. kb 02:00 Everardo Rodriguez MD is Attending Physician. kb 02:05 Triage completed. cm10 02:06 Arm band placed on Patient placed in an exam room, on a stretcher. cm10 02:07 Patient has correct armband on for positive identification. Provided Education on: ER cm10 process and procedures. . 02:07 No provider procedures requiring assistance completed. Strep swab sent to lab. Patient cm10 did not have IV access during this emergency room visit. 02:09 Liana Aldana, RN is Primary Nurse. jwLy Administered Medications: No medications were administered Medication: 02:07 VIS not applicable for this client. cm10 Outcome: 02:53 Discharge ordered by MD. pascual 03:24 Discharged to home ambulatory, jwLy 03:24 Condition: stable 03:24 Discharge instructions given to patient, Instructed on discharge instructions, follow up and referral plans. Demonstrated understanding of instructions, follow-up care, 03:25 Patient left the ED. jw7 Signatures: Radha Mendez, OPTIMIZATION MANAGER-C OPTIMIZATION MANAGER-Liana Aguilar RN RN jw7 Luanne Dorman RN RN 10 Nickie Dobson [facility]
[2022-12-28 03:30] VITALS: BP 132/73; TEMP 99.4; O2SAT 99
== END 2022-12-28 03:25 | disposition home or self-care (01) ==
LOC: ER 01:54
DX: R07.0 Pain in throat (principal)
CPT/HCPCS: 87070; 87081

== ENCOUNTER 2024-05-01 23:00 | Emergency (ER) | payer SELFPAY ==
[2024-05-01] MEDS ORDERED: IBUPROFEN 400 MG TAB ONE (23:17)
[2024-05-01] MEDS ORDERED: DIAZEPAM 5 MG TABLET ONE (23:17)
[2024-05-01] MEDS ORDERED: predniSONE 20 MG TAB ONE (23:17)
--- NOTE | 2024-05-02 00:13 | EDPHYS ---
Physician Documentation [facility] Name: Lidia Vivas Age: 23 yrs Sex: Female : 2000 Arrival Date: 05/01/2024 Time: 23:00 Bed IW2 Private MD: ED Physician Brendon Miller HPI: 05/01 23:39 This 23 yrs old Black Female presents to ER via Ambulatory with complaints of Stiff kb Neck, Neck and Upper Back Pain. 23:39 pt is a 23 year old female who presents for pain to left side of neck that started 3 kb days ago. States the pain started at work where she does a lot of lifting and twisting. Denies any other injury. Denies radiation of pain. States the pain has been getting increasingly worse. Pain aggravated by movement. 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 - Infectious Disease History:: Denies. - Social history:: Smoking status: Reported history of juuling and/or vaping. ROS: 23:12 Constitutional: As per HPI kb Exam: 23:12 Constitutional: This is a well developed, well nourished patient who is awake, alert, kb and in no acute distress. Head/Face: Normocephalic, atraumatic. Cardiovascular: Regular rate Respiratory: Respirations even and unlabored. No increased work of breathing. Talking in full sentences Skin: Warm, dry with normal turgor. Normal color. MS/ Extremity: Pulses equal, no cyanosis. Neurovascular intact. Full, normal range of motion. Neuro: Awake and alert, GCS 15, oriented to person, place, time, and situation. 23:12 ENT: Posterior pharynx: Tonsils: bilaterally enlarged, with erythema, erythema, that is mild, 23:12 Neck: External neck: tenderness, that is moderate, of the left posterior aspect of neck, C-spine: appears grossly normal, ROM/movement: pain, that is moderate, with any movement, nuchal rigidity, is not appreciated, Vital Signs: 23:08 BP 139 / 97; Pulse 71; Resp 17; Temp 98.6; Pulse Ox 100% ; Weight 95.25 kg; Height 5 me1 ft. 7 in. ; Pain 9/10; 05/02 00:35 BP 125 / 67; Pulse 71; Resp 18 S; Pulse Ox 98% on R/A; ha1 05/01 23:08 Body Mass Index 32.89 (95.25 kg, 170.18 cm) co1 05/01 23:08 Pain Scale: Adult me MDM: 05/01 23:05 Medical Screening Exam initiated kb 23:39 Differential diagnosis: strain, torticollis. Data reviewed: vital signs, nurses notes. kb Counseling: I had a detailed discussion with the patient and/or guardian regarding the historical points, exam findings, and any diagnostic results supporting the discharge/admit diagnosis, lab results, the need for outpatient follow up, a family practitioner, to return to the emergency department if symptoms worsen or persist or if there are any questions or concerns that arise at home. 23:45 Test considered but Not performed: CT: ct considered but pt has no neuro deficits, no kb vertebral tenderness. 05/01 23:12 Order name: Strep kb 05/02 00:14 Order name: Throat Culture EDMS Administered Medications: 23:14 CANCELLED (Physician Discretion): hydrocodone-acetaminophen5 mg-325 mg 1 tabs PO once kb 23:19 Drug: predniSONE PO 40 mg PO once Route: PO; co1 05/02 00:38 Follow up: Response: No adverse reaction; Marked relief of symptoms 1 05/01 23:19 Drug: Diazepam PO 5 mg PO once Route: PO; co1 05/02 00:38 Follow up: Response: No adverse reaction; No change in condition; Pain is decreased 1 05/01 23:20 Drug: Ibuprofen PO 800 mg PO once Route: PO; [facility] 05/02 00:38 Follow up: Response: No adverse reaction; Marked relief of symptoms; Pain is decreased 1 Disposition: 22:21 Co-signature as Attending Physician, Brendon Miller MD I agree with the assessment sp4 and plan of care. I reviewed the patient's care provided by the Advanced Practice Provider and agree with the diagnosis and treatment plan. Disposition Summary: 05/02/24 00:12 Discharge Ordered Notes: Location: Home kb Condition: Stable kb Diagnosis - Strain of muscle, fascia and tendon at neck level kb Followup: kb - With: Emergency Department - When: As needed - Reason: Worsening of condition Followup: kb - With: Private Physician - When: 2 - 3 days - Reason: Recheck today's complaints, Continuance of care, Re-evaluation by your physician Discharge Instructions: - Discharge Summary Sheet kb - Muscle Strain, [id number] kb Forms: - Medication Reconciliation Form kb - Antibiotic Education kb - Prescription Opioid Use kb - Patient Portal Instructions kb - Leadership Thank You Letter kb - Work release form ha1 Prescriptions: - Ibuprofen 600 mg Oral Tablet - take 1 tablet ORAL route every 6 hours As needed take with food; 30 tablet; kb Refills: 0, Product Selection Permitted - orphenadrine citrate 100 mg Oral Tablet Sustained Release - take 1 tablet ORAL route 2 times per day As needed; 20 tablet; Refills: 0, kb Product Selection Permitted Signatures: Dispatcher [employer] EDRadha Mistry, MARGAUX-C SERVICE PROVIDER-Brendon Kimble MD MD sp4 Ale Arteaga RN RN co1 Nancy Weaver RN ha1 Corrections: (The following items were deleted from the chart) 05/01 23:14 23:12 HYDROcodone-acetaminophen PO 5 mg-325 mg 1 tabs PO once ordered. [facility]
--- NOTE | 2024-05-02 00:13 | ER ---
Nurse's Notes [facility] Name: Lidia Vivas Age: 23 yrs Sex: Female : 2000 Arrival Date: 05/01/2024 Time: 23:00 Bed IW2 Private MD: Diagnosis: Strain of muscle, fascia and tendon at neck level Presentation: 05/01 23:08 Chief complaint: Patient states: c/o left neck and upper back pain for 3 days that is me1 worse today. c/o pain with swallowing. Coronavirus screen: Vaccine status:. Coronavirus screen: Vaccine status: Patient reports being unvaccinated. Ebola Screen: No symptoms or risks identified at this time. Acute neurological deficit: none identified. Initial Sepsis Screen: Does the patient meet any 2 criteria? No. Patient's initial sepsis screen is negative. Does the patient have a suspected source of infection? No. Patient's initial sepsis screen is negative. Risk Assessment: Do you want to hurt yourself or someone else? Patient reports no desire to harm self or others. Onset of symptoms was April 28, 2024. 23:08 Method Of Arrival: Ambulatory [facility] 23:08 Acuity: MICKY 4 me1 Triage Assessment: 05/02 00:36 General: Appears comfortable, Behavior is. Pain: Complains of pain in left posterior ha1 aspect of neck Pain currently is 5 out of 10 on a pain scale. Neuro: Level of Consciousness is awake, alert, obeys commands, Oriented to person, place, time, situation. Cardiovascular: Capillary refill < 3 seconds Patient's skin is warm and dry. Respiratory: Airway is patent Respiratory effort is even, unlabored, Respiratory pattern is regular, symmetrical. 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 - Infectious Disease History:: Denies. - Social history:: Smoking status: Reported history of juuling and/or vaping. Screenin/13 00:36 [facility] ED Fall Risk Assessment (Adult) History of falling in the last 3 months, ha1 including since admission No falls in past 3 months (0 pts) Confusion or Disorientation No (0 pts) Intoxicated or Sedated No (0 pts) Impaired Gait No (0 pts) Mobility Assist Device Used No (0 pt) Altered Elimination No (0 pt) Score/Fall Risk Level 0 - 2 = Low Risk Oriented to surroundings, Maintained a safe environment, Educated pt \T\ family on fall prevention, incl call for assistance when getting out of bed, Hourly rounding (assess needs \T\ fall precautionary measures) done. Abuse screen: Denies threats or abuse. Denies injuries from another. Nutritional screening: No deficits noted. Tuberculosis screening: No symptoms or risk factors identified. Assessment: 00:35 Reassessment: Patient and/or family updated on plan of care and expected duration. Pain ha1 level reassessed. Patient is alert, oriented x 3, equal unlabored respirations, skin warm/dry/pink. Patient states symptoms have improved. Vital Signs: 05/01 23:08 BP 139 / 97; Pulse 71; Resp 17; Temp 98.6; Pulse Ox 100% ; Weight 95.25 kg; Height 5 me1 ft. 7 in. ; Pain 9/10; 05/02 00:35 BP 125 / 67; Pulse 71; Resp 18 S; Pulse Ox 98% on R/A; ha1 05/01 23:08 Body Mass Index 32.89 (95.25 kg, 170.18 cm) wi1 05/01 23:08 Pain Scale: Adult wi1 ED Course: 05/01 23:01 Patient arrived in ED. jj6 23:05 Radha Mendez FNP-C is [facility]. kb 23:05 Brendon Miller MD is Attending Physician. kb 23:11 Triage completed. me1 23:11 Arm band placed on Patient placed in waiting room. me1 05/02 00:37 Patient has correct armband on for positive identification. Provided Education on: ha1 follow ups . 00:37 No provider procedures requiring assistance completed. Patient did not have IV access ha1 during this emergency room visit. Administered Medications: 05/01 23:14 CANCELLED (Physician Discretion): hydrocodone-acetaminophen5 mg-325 mg 1 tabs PO once kb 23:19 Drug: predniSONE PO 40 mg PO once Route: PO; me1 05/02 00:38 Follow up: Response: No adverse reaction; Marked relief of symptoms 1 05/01 23:19 Drug: Diazepam PO 5 mg PO once Route: PO; wi1 05/02 00:38 Follow up: Response: No adverse reaction; No change in condition; Pain is decreased 1 05/01 23:20 Drug: Ibuprofen PO 800 mg PO once Route: PO; me1 05/02 00:38 Follow up: Response: No adverse reaction; Marked relief of symptoms; Pain is decreased [facility] Medication: 00:37 VIS not applicable for this client. ha1 Outcome: 00:12 Discharge ordered by . ankur 00:37 Discharged to home ambulatory, ha1 00:37 Condition: stable 00:37 Discharge instructions given to patient, Instructed on discharge instructions, follow up and referral plans. medication usage, Demonstrated understanding of instructions, follow-up care, medications, Prescriptions given X 2, 00:38 Patient left the ED. ha1 Signatures: Radha Mendez, CATTLE CARE WORKER-C CATTLE CARE WORKER-Fatuma Sy jj6 Nancy Weaver, RN RN 1 Ale Arteaga RN RN wi1
[2024-05-02 00:44] VITALS: TEMP 98.6
[2024-05-02 00:45] VITALS: BP 125/67; O2SAT 98
== END 2024-05-02 00:38 | disposition home or self-care (01) ==
LOC: ER 23:00
DX: S16.1XXA Strain of muscle, fascia and tendon at neck level, initial encounter (principal)
CPT/HCPCS: 87070; 87081; 99283; J7512